=== PATIENT | female | born 1960 | race Two or more races ===

== ENCOUNTER → 2017-12-08 | Outpatient (CLI) | payer BC ==
--- NOTE | 2017-12-09 10:46 | CT ---
EXAMINATION TYPE: CT abdomen pelvis w con DATE OF EXAM: 12/08/2017 COMPARISON: NONE HISTORY: Pelvic pain with occasional hematuria and history of renal stones. Family history of cancer CT DLP: 1790 mGycm Automated exposure control for dose reduction was used. CONTRAST: CT scan of the abdomen pelvis is performed with IV Contrast, patient injected with 100 mL of Isovue 3 00. FINDINGS- LUNG BASES-subsegmental atelectasis or scar at the lung bases.. LIVER/GB-previous cholecystectomy changes noted.. PANCREAS- No gross abnormality is seen. SPLEEN- No gross abnormality is seen. ADRENALS- No gross abnormality is seen. KIDNEYS/BLADDER- no hydronephrosis. There are 2 less than 5 mm left renal calculi and a single less t loo 5 mm right renal calculus. No solid or cystic renal mass. BOWEL-bowel gas pattern nonspecific. LYMPH NODES- No greater than 1cm abdominal or pelvic lymph nodes are appreciated. OSSEOUS STRUCTURES-hypertrophic change of the spine noted. OTHER- aorta of normal caliber. No free fluid or free air. Small periumbilical fat-containing hernia noted. Correlate for previous hysterectomy. IMPRESSION- 1. Bilateral nephrolithiasis with no evidence of hydronephrosis.
== END | disposition home or self-care (01) ==
LOC: RADCTMAIN 17:40
PROVIDERS: ATTEND Family Medicine
DX: N20.0 Calculus of kidney (principal)
CPT/HCPCS: 74177; Q9967

== ENCOUNTER → 2018-05-08 | Outpatient (CLI) | payer BC ==
--- NOTE | 2018-05-08 12:52 | XR ---
Abdomen HISTORY: Left ureteral stone Frontal view of the abdomen on 2 images correlated to prior abdomen 02/24/[address] abdomen pe lvis 12/08/2017 There are calcifications within the pelvis noted compatible with phleboliths to upper pole left-sided renal calcifications each measure approximately 4 to 5 mm, upper pole calcification on the right turner sures approximately 3 mm. Surgical clips present right upper quadrant. Lung bases are clear. There is no evident bowel infection or pneumoperitoneum. Degenerative disc changes are present in the visuali zed spine. IMPRESSION: Bilateral nephrolithiasis.
== END | disposition home or self-care (01) ==
LOC: RADXRMAIN 11:19
PROVIDERS: ATTEND Urology
DX: N20.0 Calculus of kidney (principal)
CPT/HCPCS: 74018

== ENCOUNTER → 2019-06-25 | Outpatient (CLI) | payer BC ==
--- NOTE | 2019-06-26 13:27 | MM ---
Reason for exam: screening (asymptomatic). Last mammogram was performed 3 years and 1 month ago. History: Patient is postmenopausal and had first child at age 33. Family history of breast cancer in paternal aunt at age 50. Took estrogen for 6 months. Took progesterone for 6 months. Physical Findings: A clinical breast exam by your physician is recommended on an annual basis and results should be correlated with mammographic findings. MG 3D Screening Mammo W/Cad Bilateral CC and MLO view(s) were taken. Prior study comparison: May 20, 2016, bilateral MG 3d screening mammo w/cad. August 19, 2014, mammogram, performed at [facility]. There are scattered fibroglandular densities. No significant changes when compared with prior studies. ASSESSMENT: Benign, BI-RAD 2 RECOMMENDATION: Routine screening mammogram of both breasts in 1 year.
== END | disposition home or self-care (01) ==
LOC: RADMAMWWP 08:15
PROVIDERS: ATTEND Family Medicine
DX: Z12.31 Encounter for screening mammogram for malignant neoplasm of breast (principal)
CPT/HCPCS: 77063; 77067

== ENCOUNTER 2021-02-26 12:49 | Emergency (ER) | payer BC ==
[2021-02-26 12:53] VITALS: TEMP 97.8
[2021-02-26] MEDS ORDERED: KETOROLAC 15 MG/ML 1 ML VIAL IVP STA (13:20)
[2021-02-26] MEDS ORDERED: SODIUM CHLORIDE 0.9% 1,000 ML IV STA (13:20)
--- NOTE | 2021-02-26 13:31 | ED ---
General Adult HPI - General Chief complaint: Abdominal Pain Stated complaint: ABD Pain Time Seen by Provider: 02/26/21 13:02 Source: patient Mode of arrival: ambulatory Limitations: no limitations - History of Present Illness Initial comments: 61-year-old female presents to the emergency room for a chief complaint of abdominal pain. Patient reports she started to have some blood in her urine this morning. Patient went to urgent care and had a urinalysis performed as well as x-ray. Patient states she did not have pain until she got home. She then developed left-sided abdominal pain. Patient does have a history of kidney stones all of which have required lithotripsy. Patient is not sure if this feels similar to the previous stones. She denies fevers or chills. Denies nausea vomiting diarrhea.Patient has no other complaints at this time including shortness of breath, chest pain, nausea or vomiting, headache, or visual changes. - Related Data Previous Rx's Medication Instructions Recorded Cephalexin [Keflex] 500 mg PO Q6HR 7 Days #28 cap 02/26/21 Ketorolac [Toradol] 10 mg PO Q8HR 3 Days #9 tab 02/26/21 Ondansetron [Zofran ODT] 4 mg PO Q8HR PRN #15 tab 02/26/21 Tamsulosin [Flomax] 0.4 mg PO DAILY #20 cap 02/26/21 Allergies Allergy/AdvReac Type Severity Reaction Status Date / Time acetaminophen [From Vicodin] Allergy Nausea Verified 02/26/21 12:53 hydrocodone bitartrate Allergy Nausea Verified 02/26/21 12:53 [From Vicodin] Review of Systems ROS Statement: Those systems with pertinent positive or pertinent negative responses have been documented in the HPI. ROS Other: All systems not noted in ROS Statement are negative. Past Medical History Past Medical History: Asthma Additional Past Medical History / Comment(s): kidney stones and diverticulosis. recent UTI-pt states resolved antibiotics finished History of Any Multi-Drug Resistant Organisms: None Reported Past Surgical History: Section, Cholecystectomy, Hysterectomy Additional Past Surgical History / Comment(s): lithotripsy X2. COLONOSCOPY Past Anesthesia/Blood Transfusion Reactions: Postoperative Nausea & Vomiting (PONV) Past Psychological History: Anxiety Smoking Status: Never smoker Past Alcohol Use History: Occasional Past Drug Use History: None Reported - Past Family History Son(s) Family Medical History: Cancer Additional Family Medical History / Comment(s): leukemia General Exam Limitations: no limitations General appearance: alert, in no apparent distress Head exam: Present: atraumatic, normocephalic, normal inspection Eye exam: Present: normal appearance, PERRL, EOMI. Absent: scleral icterus, conjunctival injection, periorbital swelling ENT exam: Present: normal exam, mucous membranes moist Neck exam: Present: normal inspection, full ROM. Absent: tenderness, meningismus, lymphadenopathy Respiratory exam: Present: normal lung sounds bilaterally. Absent: respiratory distress, wheezes, rales, rhonchi, stridor Cardiovascular Exam: Present: regular rate, normal rhythm, normal heart sounds. Absent: systolic murmur, diastolic murmur, rubs, gallop, clicks GI/Abdominal exam: Present: soft, tenderness (Minimal left-sided mid abdominal tenderness), normal bowel sounds. Absent: distended, guarding, rebound, rigid Back exam: Absent: CVA tenderness (R), CVA tenderness (L) Neurological exam: Present: alert Course Vital Signs 02/26/21 02/26/21 12:50 15:01 Temperature 97.8 F Pulse Rate 73 80 Respiratory 20 16 Rate Blood Pressure 155/88 126/78 O2 Sat by Pulse 98 99 Oximetry Medical Decision Making - Medical Decision Making Vitals are stable. Patient is well-appearing. No CVA tenderness however patien t does have left-sided abdominal tenderness. CBC CMP unremarkable. Urinalysis however does show greater than 182 red and white blood cells. CT abdomen and pelvis shows a 6.8 mm calculus proximal left ureter resulting in mild left-sided hydronephrosis. I did discuss this case with Dr. brewer given the white blood cells. Recommends culturing the urine and starting the patient on Keflex. He will see her early next week as long as her pain is controlled. Patient reevaluated and is comfortable at this time. We'll discharge her home with strict return parameters. - Lab Data Result diagrams: 02/26/21 14:22 02/26/21 13:26 Lab Results 02/26/21 02/26/21 02/26/21 Range/Units 13:26 13:26 14:22 WBC 10.2 (3.8-10.6) k/uL RBC 4.63 (3.80-5.40) m/uL Hgb 14.2 (11.4-16.0) gm/dL Hct 42.7 (34.0-46.0) % MCV 92.2 (80.0-100.0) fL MCH 30.6 (25.0-35.0) pg MCHC 33.1 (31.0-37.0) g/dL RDW 12.4 (11.5-15.5) % Plt Count 278 (150-450) k/uL MPV 7.2 Neutrophils % 83 % Lymphocytes % 10 % Monocytes % 6 % Eosinophils % 0 % Basophils % 0 % Neutrophils # 8.4 H (1.3-7.7) k/uL Lymphocytes # 1.0 (1.0-4.8) k/uL Monocytes # 0.6 (0-1.0) k/uL Eosinophils # 0.0 (0-0.7) k/uL Basophils # 0.0 (0-0.2) k/uL Sodium 138 (137-145) mmol/L Potassium 4.4 (3.5-5.1) mmol/L Chloride 103 (98-107) mmol/L Carbon Dioxide 25 (22-30) mmol/L Anion Gap 10 mmol/L BUN 18 H (7-17) mg/dL Creatinine 0.60 (0.52-1.04) mg/dL Est GFR (CKD-EPI)AfAm >90 (>60 ml/min/1.73 sqM) Est GFR (CKD-EPI)NonAf >90 (>60 ml/min/1.73 sqM) Glucose 118 H (74-99) mg/dL Calcium 10.3 H (8.4-10.2) mg/dL Total Bilirubin 0.4 (0.2-1.3) mg/dL AST 36 (14-36) U/L ALT 49 H (4-34) U/L Alkaline Phosphatase 57 (38-126) U/L Total Protein 7.9 (6.3-8.2) g/dL Albumin 4.6 (3.5-5.0) g/dL Amylase 55 (30-110) U/L Lipase 63 (23-300) U/L Urine Color Red Urine Appearance Cloudy H (Clear) Urine pH 5.5 (5.0-8.0) Ur Specific Ozan 1.022 (1.001-1.035) Urine Protein 1+ H (Negative) Urine Glucose (UA) Negative (Negative) Urine Ketones Trace H (Negative) Urine Blood Large H (Negative) Urine Nitrite Negative (Negative) Urine Bilirubin Negative (Negative) Urine Urobilinogen <2.0 (<2.0) mg/dL Ur Leukocyte Esterase Small H (Negative) Urine RBC >182 H (0-5) /hpf Urine WBC >182 H (0-5) /hpf Urine WBC Clumps Many H (None) /hpf Ur Squamous Epith Cells 2 (0-4) /hpf Calcium Oxalate Crystal Many H (None) /hpf Urine Mucus Occasional H (None) /hpf Disposition Clinical Impression: Kidney stone on left side, UTI (urinary tract infection) Disposition: HOME SELF-CARE Instructions (If sedation given, give patient instructions): Kidney Stones (ED), Urinary Tract Infection in Women (ED) Additional Instructions: Please drink plenty of fluids. Take antibiotic as directed. Take Toradol for pain as needed. Do not take Motrin on the Suze take Toradol. Take Tylenol 3 for severe pain. Do not drive or operate machinery while taking this. Follow up with Dr. brewer early next week. Return to the emergency room for any worsening symptoms such as worsening pain or fevers. Prescriptions: Tamsulosin [Flomax] 0.4 mg PO DAILY #20 cap Cephalexin [Keflex] 500 mg PO Q6HR 7 Days #28 cap Ketorolac [Toradol] 10 mg PO Q8HR 3 Days #9 tab Ondansetron [Zofran ODT] 4 mg PO Q8HR PRN #15 tab PRN Reason: Nausea Is patient prescribed a controlled substance at d/c from ED?: No Referrals: Rogerio Baker MD [Primary Care Provider] - 1-2 days Wm Brewer MD [STAFF PHYSICIAN] - 1-2 days Time of Disposition: 15:13
[2021-02-26 14:07] LABS: ALT 49 U/L (4-34); African American GFR (CKD) >90 (>60 ml/min/1.73 sqM); Albumin 4.6 g/dL (3.5-5.0); Amylase 55 U/L (30-110); Anion Gap 10 mmol/L; Blood Urea Nitrogen 18 mg/dL (7-17); Calcium 10.3 mg/dL (8.4-10.2); Carbon Dioxide 25 mmol/L (22-30); Chloride 103 mmol/L (98-107); Glucose 118 mg/dL (74-99); Lipase 63 U/L (23-300); Non-African American GFR(CKD) >90 (>60 ml/min/1.73 sqM); Sodium 138 mmol/L (137-145); Total Bilirubin 0.4 mg/dL (0.2-1.3); Total Protein 7.9 g/dL (6.3-8.2)
[2021-02-26 14:13] LABS: AST 36 U/L (14-36); Potassium 4.4 mmol/L (3.5-5.1)
[2021-02-26 14:14] LABS: Alkaline Phosphatase 57 U/L (38-126)
[2021-02-26 14:27] LABS: Appearance,Urine Cloudy (Clear); Bilirubin,Urine Negative (Negative); Blood,Urine Large (Negative); Calcium Oxalate Crystals,Urine Many /hpf; Color,Urine Red; Glucose,Urine (UA) Negative (Negative); Ketones,Urine Trace (Negative); Leukocyte Esterase,Urine Small (Negative); Mucus,Urine Occasional /hpf; Nitrite,Urine Negative (Negative); PH, Urine 5.5 (5.0-8.0); Protein,Urine 1+ (Negative); RBC,Urine >182 /hpf (0-5); Specific Gravity,Urine 1.022 (1.001-1.035); Squamous Epithelial Cell,Urine 2 /hpf (0-4); Urobilinogen,Urine <2.0 mg/dL (<2.0); WBC,Urine >182 /hpf (0-5)
--- NOTE | 2021-02-26 14:28 | CT ---
EXAMINATION TYPE: CT abdomen pelvis w con DATE OF EXAM: 02/26/2021 COMPARISON: 12/08/2017 HISTORY: Left flank pain CT DLP: 2366.4 mGycm CONTRAST: CT scan of the abdomen and pelvis is performed without Oral Contrast and with IV Contrast, patient in jected with 100 ml mL of Isovue 300. FINDINGS: LUNG BASES-: No visible nodule. No infiltrate. LIVER/GB: The gallbladder is surgically absent. No space occupying hepatic lesion. Biliary tree is of normal caliber. PANCREAS: No inflammation. No distinct mass. SPLEEN: No splenic enlargement. No lesion seen. ADRENALS: No nodule. No thickening. KIDNEYS/BLADDER: 6.8 mm calculus proximal left ureter resulting in mild left-sided hydronephrosis. No nobstructing calculus upper pole left kidney measures 3 mm. 7.8 mm calculus mid pole right kidney is nonobstructive. No renal masses detected. BOWEL: Normal appendix. Normal bowel caliber. No inflammation. GENITAL ORGANS: Hysterectomy changes noted. LYMPH NODES: No greater than 1cm abdominal or pelvic lymph nodes are appreciated. AORTA: No significant abnormality. OSSEOUS STRUCTURES: No significant abnormality is seen. OTHER: Small fat-containing umbilical hernia. IMPRESSION: 1. 6.8 mm calculus proximal left ureter resulting in mild left-sided hydronephrosis.
[2021-02-26 14:35] LABS: Basophils % (A) 0 %; Eosinophils % (A) 0 %; HCT 42.7 % (34.0-46.0); HGB 14.2 gm/dL (11.4-16.0); Lymphocytes % (A) 10 %; MCH 30.6 pg (25.0-35.0); MCHC 33.1 g/dL (31.0-37.0); MCV 92.2 fL (80.0-100.0); Mean Platelet Volume 7.2; Monocytes # (A) 0.6 k/uL (0-1.0); Monocytes % (A) 6 %; Neutrophils # (A) 8.4 k/uL (1.3-7.7); Neutrophils % (A) 83 %; Platelet Count 278 k/uL (150-450); RBC 4.63 m/uL (3.80-5.40); RDW 12.4 % (11.5-15.5); WBC 10.2 k/uL (3.8-10.6)
[2021-02-26 15:01] VITALS: BP 126/78; PULSE 80; RESP 16
[2021-02-26] MEDS ORDERED: cefTRIAXone IN SWFI 1,000 MG/10 ML SYRINGE IVP STA (15:02)
[2021-02-26] MEDS ORDERED: ACET/COD 300 MG/30 MG STARTER PACK 6 TAB BTL PO STA (15:33)
== END 2021-02-26 15:39 | disposition home or self-care (01) ==
LOC: EC 12:49
DX: N13.2 Hydronephrosis with renal and ureteral calculous obstruction (principal); N39.0 Urinary tract infection, site not specified; J45.909 Unspecified asthma, uncomplicated; F41.9 Anxiety disorder, unspecified
CPT/HCPCS: 36415; 74177; 80053; 81001; 82150; 83690; 85025; 87086; 96361; 96374; 96375; 99284

== ENCOUNTER → 2021-03-02 | Outpatient (CLI) | payer BC ==
--- NOTE | 2021-03-02 12:11 | XR ---
EXAMINATION TYPE: XR KUB DATE OF EXAM: 03/02/2021 COMPARISON: 05/08/2018 HISTORY: Left-sided kidney stone TECHNIQUE: One view abdominal series FINDINGS: The osseous structures are intact. The bowel gas pattern is nonspecific. Surgical clips right upper quadrant. There is a punctate 2 mm calcification overlying the lower pole left kidney. There is a new 2 mm calcification left upper hemipelvis represents a ureteral calculus. Additional calcification pe lvis may be vascular. Hypertrophic change of the spine and hip joint. IMPRESSION: 1. Probable 2 mm punctate left lower pole renal calculus. 2. Possible 2 mm left hemipelvic and ureteral calcification appears new from prior exam.
== END | disposition home or self-care (01) ==
LOC: RADXRMAIN 11:37
PROVIDERS: ATTEND Urology
DX: N20.0 Calculus of kidney (principal)
CPT/HCPCS: 74018

== ENCOUNTER → 2022-09-20 | Outpatient (CLI) | payer OTHER | LOC: CPPFTMAIN 17:00 | PROVIDERS: ATTEND Allergy & Immunology | DX: J45.41 Moderate persistent asthma with (acute) exacerbation (principal); Z88.5 Allergy status to narcotic agent; Z88.8 Allergy status to other drugs, medicaments and biological substances | CPT/HCPCS: 94060; 94726; 94729 ==

== ENCOUNTER → 2023-04-06 | Outpatient (CLI) | payer OTHER ==
[2023-04-06 16:20] LABS: Basophils # (A) 0.06 X 10*3/uL (0.00-0.10); Basophils % (A) 1.4 %; Eosinophils # (A) 0.05 X 10*3/uL (0.04-0.35); Eosinophils % (A) 1.1 %; HCT 44.3 % (37.2-46.3); HGB 14.2 d/dL (12.0-15.0); Lymphocytes # (A) 1.44 X 10*3/uL (0.90-5.00); Lymphocytes % (A) 33.1 %; MCH 29.6 pg (27.0-32.0); MCHC 32.1 d/dL (32.0-37.0); MCV 92.5 FL (80.0-97.0); Mean Platelet Volume 9.8 FL (9.5-12.2); Monocytes # (A) 0.41 X 10*3/uL (0.20-1.00); Monocytes % (A) 9.4 %; NRBC Per 100 WBC 0 X 10*3/uL (0.00-0.01); Neutrophils # (A) 2.38 X 10*3/uL (1.80-7.70); Neutrophils % (A) 54.8 %; Platelet Count 269 X 10*3/uL (140-440); RBC 4.79 X 10*6/uL (4.10-5.20); WBC 4.35 X 10*3/uL (4.50-10.00)
[2023-04-06 22:45] LABS: Aspergillus fumagatus IgE <0.10 kU/L; Codfish IgE <0.10 kU/L; Dog Dander IgE 1.78 kU/L; Egg White IgE <0.10 kU/L; Maple (Box Elder) IgE <0.10 kU/L; Oak IgE <0.10 kU/L; Peanut IgE <0.10 kU/L; Ragweed,Common IgE 0.32 kU/L; Shrimp IgE <0.10 kU/L; Soybean IgE <0.10 kU/L
[2023-04-07 09:56] LABS: Alt. alternata IgE Class CLASS 0; Alternaria alternata IgE <0.10 kU/L (<0.10); Chicken IgE Class CLASS 0; Crab IgE <0.10 kU/L (<0.10); Crab IgE Class CLASS 0; Salmon IgE <0.10 kU/L (<0.10); Salmon IgE Class CLASS 0
[2023-04-07 10:35] LABS: HLA B27 NEGATIVE
== END | disposition home or self-care (01) ==
LOC: LABWHC1 07:30
PROVIDERS: ATTEND Internal Medicine Geriatric Medicine
DX: M19.90 Unspecified osteoarthritis, unspecified site (principal); E78.2 Mixed hyperlipidemia; E07.9 Disorder of thyroid, unspecified; J45.40 Moderate persistent asthma, uncomplicated; R73.9 Hyperglycemia, unspecified
CPT/HCPCS: 36415; 80053; 80061; 82306; 83036; 84439; 84443; 84550; 85025; 86003; 86038; 86431; 86812

== ENCOUNTER → 2023-05-05 | Outpatient (CLI) | payer OTHER ==
--- NOTE | 2023-05-05 10:47 | BD ---
EXAMINATION TYPE: Axial Bone Density DATE OF EXAM: 05/05/2023 CLINICAL HISTORY: 63 years old Female. ICD-10 CODE: Z13.820 screening Height: 65.5in Weight: 262lb FRAX RISK QUESTIONS: Secondary Osteoporosis: 3. Menopause before 45: at 47 RISK FACTORS HISTORY OF: Family History of Osteoporosis: yes Active: yes Diet low in dairy products/other sources of calcium: yes Postmenopausal woman: yes MEDICATIONS: Additional Medications: cholesterol med, vitamin d, inhaler (occasional) Additional History: EXAM MEASUREMENTS: Bone mineral densitometry was performed using the [employer] System. Bone mineral density as measured about the Lumbar spine is: ----- L1-L4(G/cm2): 1.052 T Score Values are as follows: ----- L1: -1.0 ----- L2: -1.3 ----- L3: -0.7 ----- L4: -1.4 ----- L1-L4: -1.1 Z Score Values are as follows: ----- L1: -0.9 ----- L2: -1.2 ----- L3: -0.6 ----- L4: -1.2 ----- L1-L4: -0.9 First dexa at [facility] Bone mineral density about the R hip (g/cm2): 1.038 Bone mineral density about the L hip (g/cm2): 1.089 T Score values are as follows: -----R Neck: -1.0 -----L Neck: -0.8 -----R Total: 0.2 -----L Total: 0.6 Z Score values are as follows: -----R Neck: -0.5 -----L Neck: -0.2 -----R Total: 0.4 -----L Total: 0.8 FRAX%s: The graph provided illustrates a 6.4% chance for a major osteoporotic fx and a 0.4% chance fo r the hips probability for fx in 10 years time. IMPRESSION: Normal (Values between +1 and -1 indicate normal bone mass). Consider repeating this study in 5 year s or sooner if there is some new clinical indication. NOTE: T-SCORE=SD OF THE YOUNG ADULT MEAN.
--- NOTE | 2023-05-08 08:31 | MM ---
Reason for Exam: Screening (asymptomatic). Last mammogram was performed 1 year(s) and 2 month(s) ago. Patient History: Menarche at age 14. First Full-Term at age 33. Late child-bearing (after 32). Left ovary removed at age 49. Right ovary removed at age 49. Hysterectomy at age 49. Postmenopausal. Patient has history of breast feeding. Estrogen for 6 months. Progesterone for 6 months. Paternal aunt had breast cancer, age 50. Sister had breast cancer under age 50. Risk Values: Jaen 5 year model risk: 3.0%. NCI Lifetime model risk: 13.9%. Prior Study Comparison: 08/19/2014 Screening Mammogram, [facility]. 05/20/2016 Bilateral Screening Mammogram, [facility]. 06/25/2019 Bilateral Screening Mammogram, [facility]. 03/14/2022 Bilateral Screening Mammogram, [facility]. Tissue Density: The breast tissue is almost entirely fat. Findings: Analyzed By CAD. There is no suspicious group of microcalcifications or new suspicious mass. Benign-appearing calcifications bilaterally. Overall Assessment: Benign, BI-RAD 2 Management: Screening Mammogram of both breasts in [address] [facility] will attempt to contact patient to return for supplemental views and ultrasound if indicated. Patient should continue monthly self-breast exams. A clinical breast exam by your physician is recommended on an annual basis. This exam should not preclude additional follow-up of suspicious palpable abnormalities. Note on Jane scores and lifetime risk: 1. A Jane score greater than 3% is considered moderate risk. If this is the case, consider specialist referral to assess eligibility for a risk reducing agent. 2. If overall lifetime risk for the development of breast cancer is 20% or higher, the patient may qualify for future screening with alternating mammogram and breast MRI. Electronically signed and approved by: Sagar Leach DO
== END | disposition home or self-care (01) ==
LOC: RADMAMWWP 06:58
PROVIDERS: ATTEND Internal Medicine Geriatric Medicine
DX: Z12.31 Encounter for screening mammogram for malignant neoplasm of breast (principal); Z13.820 Encounter for screening for osteoporosis; M85.88 Other specified disorders of bone density and structure, other site; Z78.0 Asymptomatic menopausal state; Z80.3 Family history of malignant neoplasm of breast
CPT/HCPCS: 77063; 77067; 77080

== ENCOUNTER → 2023-10-06 | Outpatient (CLI) | payer OTHER ==
--- NOTE | 2023-10-06 15:30 | CT ---
EXAMINATION: CT ABDOMEN AND PELVIS WITH IV CONTRAST DATE OF EXAMINATION: 10/06/2023. COMPARISON: None available. INDICATION: Diverticulitis. PROCEDURE: Axial CT of the abdomen and pelvis was performed with contrast and sagittal and coronal reformatted images were performed. CT dose lowering techniques were used, to include: automated expos ure control, adjustment for patient size, and/or use of iterative reconstruction. 100 mL of Isovue-30 0 was given intravenously. FINDINGS: LOWER CHEST : The visualized lung bases are clear. There are no pleural or pericardial effusions. ABDOMEN: Liver and Biliary system: Normal. Adrenal glands: Normal. Kidneys and ureters: There is a 1 cm nonobstructing stone in the upper pole of the right kidney. The kidneys and ureters otherwise appear unremarkable. Spleen: Normal. Pancreas: Normal. Gallbladder: Absent. Lymph nodes, Peritoneum and mesentery: There is no mesenteric or retroperitoneal lymphadenopathy. Gastrointestinal tract: There are no dilated loops of bowel or free intraperitoneal air. The appe ndix is normal. Aorta/IVC: No aortic aneurysm. IVC normal. Abdominal wall: Normal. PELVIS: Fluid: There is no free fluid in the pelvis. Lymph Nodes: There is no pelvic or inguinal lymphadenopathy.. Urinary bladder: Normal. BONES: There are no osseous destructive lesions.. ADDITIONAL SIGNIFICANT FINDINGS: None. IMPRESSION: 1. No acute process within the abdomen or pelvis. 2. Nonobstructing right renal stone.
== END | disposition home or self-care (01) ==
LOC: RADCTMAIN 13:32
PROVIDERS: ATTEND Internal Medicine Geriatric Medicine
DX: N20.0 Calculus of kidney (principal); K57.32 Diverticulitis of large intestine without perforation or abscess without bleeding
CPT/HCPCS: 74177; Q9967

== ENCOUNTER → 2024-04-08 | Outpatient (CLI) | payer OTHER ==
--- NOTE | 2024-04-08 08:20 | CT ---
EXAMINATION TYPE: CT brain wo con DATE OF EXAM: 04/08/2024 COMPARISON: 08/23/2014 HISTORY: headache after fall CT DLP: 1047.[address] of the brain was performed. The ventricles, basal cisterns and sulci overlying the cerebral convexities demonstrate mild enlargem ent. There is no evidence for intracranial hemorrhage or sulcal effacement. There is decreased attenuation about the periventricular white matter and deep white matter of both c erebral hemispheres, compatible with chronic small vessel ischemia. Differential diagnosis does inclu de demyelination. No mass effects are seen.No midline shift. Osseous calvarium is intact. If symptoms persist consider MRI. IMPRESSION: 1. Age related atrophic and chronic small vessel ischemic change without acute intracranial process s een at this time.
--- NOTE | 2024-04-08 11:11 | XR ---
EXAMINATION TYPE: XR cervical spine comp DATE OF EXAM: 04/08/2024 7:01 AM CLINICAL INDICATION: Female, 64 years old with history of R51.9 HEADACHE M54.2 CERVICALGIA; [facility] COMPARISON: None TECHNIQUE: The cervical spine was imaged in frontal, lateral, odontoid and bilateral oblique. FINDINGS: The osseous structures show normal alignment without evidence of an acute fracture. There are osteoph ytes noted throughout the cervical spine on the anterior and lateral aspects of the vertebral bodies. The intervertebral disk spaces are narrowed at multiple levels. Pedicles are intact. Soft tissues a re within normal limits. The odontoid appears intact. IMPRESSION: 1. No fracture or dislocation. 2. Mild degenerative disc disease changes of the cervical spine.
== END | disposition home or self-care (01) ==
LOC: RADCTMAIN 06:32
PROVIDERS: ATTEND Internal Medicine Geriatric Medicine
DX: I67.82 Cerebral ischemia (principal); M50.30 Other cervical disc degeneration, unspecified cervical region
CPT/HCPCS: 70450; 72050

== ENCOUNTER 2025-01-08 05:43 | Day surgery (SDC) | payer OTHER ==
--- NOTE | 2025-01-07 19:39 | P.GSHP ---
History of Present Illness H&P Date: 01/07/25 65 yo female with recurrent utis. She has a 1 cm right renal stone. the patient comes for removal of this stone and hopeful cessation of the recurrent utis. She is on ab. - Constitutional Constitutional: Denies chills, Denies fever - EENT Eyes: denies blurred vision, denies pain Ears, nose, mouth and throat: Denies headache, Denies sore throat - Cardiovascular Cardiovascular: Denies chest pain, Denies shortness of breath - Respiratory Respiratory: Denies cough, Denies 7 - Gastrointestinal Gastrointestinal: Denies abdominal pain, Denies diarrhea, Denies nausea, Denies vomiting - Genitourinary (Female) Genitourinary: Denies dysuria, Denies hematuria - Genitourinary (Male) Genitourinary: Denies dysuria, Denies hematuria - Musculoskeletal Musculoskeletal: Denies myalgias - Integumentary Integumentary: Denies pruritus, Denies rash - Neurological Neurological: Denies numbness, Denies weakness - Psychiatric Psychiatric: Denies anxiety, Denies depression - Endocrine Endocrine: Denies fatigue, Denies weight change Past Medical History Past Medical History: Asthma, Osteoarthritis (OA), Sleep Apnea/CPAP/BIPAP Additional Past Medical History / Comment(s): kidney stones and diverticulosis, current A/B for UTI, doesn't use anything for sleep apnea History of Any Multi-Drug Resistant Organisms: None Reported Past Surgical History: Section, Cholecystectomy, Hysterectomy Additional Past Surgical History / Comment(s): lithotripsy X2, cysts removed fr om scalp,. COLONOSCOPY Past Anesthesia/Blood Transfusion Reactions: Postoperative Nausea & Vomiting (PONV) Smoking Status: Never smoker - Past Family History Son(s) Family Medical History: Cancer Additional Family Medical History / Comment(s): leukemia Medications and Allergies Home Medications Medication Instructions Recorded Confirmed Type Albuterol Inhaler [Ventolin Hfa 1 - 2 puff INHALATION Q6H PRN 01/07/25 01/07/25 History Inhaler] Sulfamethox-Tmp 800-160Mg [Bactrim 1 tab PO Q12HR 01/07/25 01/07/25 History DS 800-160 mg] hydroCHLOROthiazide [Hydrodiuril] 12.5 mg PO DAILY PRN 01/07/25 01/07/25 History Allergies Allergy/AdvReac Type Severity Reaction Status Date / Time acetaminophen [From Vicodin] Allergy Nausea Verified 01/07/25 08:41 hydrocodone bitartrate AdvReac Nausea Verified 01/07/25 08:41 [From Vicodin] Surgical - Exam - General well developed, well nourished, no distress - Eyes normal ocular movement, no icteric - ENT no hearing loss, no congestion - Neck no masses, trachea midline - Respiratory normal respiratory effort, clear to auscultation - Abdomen Abdomen: soft, non tender, no guarding, no rigid, no rebound - Integumentary no rash, no abnormal pigmentation - Neurologic no disoriented, no combative - Psychiatric oriented to time, oriented to person, oriented to place, speech is normal, memory intact Results - Imaging Abdominal x-ray: report reviewed, image reviewed CT scan - abdomen: report reviewed, image reviewed CT scan - pelvis: report reviewed, image reviewed Assessment and Plan Assessment: Impression: recurrent uti witha right renal stone Plan: cysto with right ureteroscopy with laser lithotripsy and possible stent
[2025-01-08] MEDS ORDERED: LIDOCAINE 1% (10MG/ML) FOR IV START INTRADERMA PRN (06:20)
[2025-01-08] MEDS ORDERED: fentaNYL (PF) 50 MCG/ML 2 ML AMP IVP PRN (06:20)
[2025-01-08] MEDS ORDERED: MIDAZOLAM 2 MG/2 ML VIAL IV PRN (06:20)
[2025-01-08] MEDS ORDERED: HYDROmorphone 0.5 MG/0.5 ML SYRINGE IVP PRN (06:20)
[2025-01-08] MEDS: IV FLUID CONTINUATION 1,000 ML IV ONE (06:27)
--- NOTE | 2025-01-08 06:33 | XR ---
EXAMINATION TYPE: XR KUB DATE OF EXAM: 01/08/2025 6:18 AM CLINICAL INDICATION: Female, 65 years old with history of N20.0 Right Renal Stone, pain TECHNIQUE: 2 supine views of the abdomen. COMPARISON: CT abdomen and pelvis October 06, 2023. FINDINGS: Likely stable roughly 9 mm right renal calculus. No definite left-sided nephrolithiasis. Sc attered tiny pelvic phleboliths. Overall nonobstructive bowel gas pattern. Osseous structures are intact. Cholecystectomy clips are re demonstrated. IMPRESSION: As above. [facility], , 01/08/2025 6:31 AM
[2025-01-08] MEDS: ONDANSETRON 4 MG/2 ML VIAL IVP ONE (06:58)
[2025-01-08] MEDS: DEXAMETHASONE SOD PHOSPHATE 4 MG/ML 1 ML VIAL IV ONE (06:59)
[2025-01-08] MEDS: LACTATED RINGERS 1,000 ML IV SCH (07:03)
[2025-01-08] MEDS ORDERED: fentaNYL (PF) 50 MCG/ML 2 ML AMP ONE (07:27)
[2025-01-08] MEDS ORDERED: PHENYLEPHRINE 10 MG/ML VIAL ONE (07:27)
[2025-01-08] MEDS ORDERED: PROPOFOL 10 MG/ML 20 ML VIAL IV ONE (07:27)
[2025-01-08] MEDS ORDERED: MIDAZOLAM 2 MG/2 ML VIAL ONE (07:27)
[2025-01-08] MEDS ORDERED: LIDOCAINE 1% INJ 10MG/ML (20 ML MDV) ONE (07:27)
[2025-01-08] MEDS ORDERED: SUCCINYLCHOLINE CHLORIDE 200 MG/10 ML VIAL IV ONE (07:27)
[2025-01-08] MEDS ORDERED: ALBUTEROL HFA INHALER INHALATION ONE (07:27)
[2025-01-08] MEDS: GENTAMICIN 130 MG in SODIUM CHLORIDE 0.9% 100 ML IVPB PRN (07:30)
--- NOTE | 2025-01-08 08:25 | P.OP ---
Date of Procedure: 01/08/25 Preoperative Diagnosis: Right renal stone Postoperative Diagnosis: Same Procedure(s) Performed: Cystoscopy, right ureteroscopy with laser lithotripsy Anesthesia: PALLAVI Surgeon: Michael Jean Estimated Blood Loss (ml): 0 Pathology: none sent Condition: stable Disposition: PACU Indications for Procedure: Patient is 65. She has painful right renal stone she comes for cystoscopy right ureteroscopy and laser lithotripsy Description of Procedure: Patient brought to the operating suite. Given a general anesthetic. Placed in lithotomy position with a sterile prep and drape. Cystoscopy identifies a normal urethra normal ureters normal bladder mucosa. The right ureteral orifice is intubated an 035 wire was passed up into the kidney. Over the wire is passed an 11-13 [place] reentry sheath. The inner sheath is removed. Passed the flexible ureteroscope up into the mid upper pole calyx with the stones. With a 275 m laser probe the stones are broken into very tiny fragments. None of the fragments are big enough to be basketed. I look throughout the collecting system there are no remaining stones. Pullout ureteroscopy is unremarkable Impression successful ureteroscopy and laser lithotripsy to right renal stones. There are calcium oxalate based on appearance. Patient be discharged home upon recovery and follow-up in the office in 1 week.
--- NOTE | 2025-01-08 08:28 | FL ---
Fluoroscopy INDICATION: Pain FINDINGS: Fluoroscopy time: 8 point seconds. Total dose area product (DAP) in uGy*m?, mGy*cm? (or similar): [id number] Images obtained: 3. Images document the procedure. IMPRESSION: 1. Documentation of fluoroscopy. [facility], , 01/08/2025 8:26 AM
[2025-01-08 08:35] VITALS: TEMP 96.8
[2025-01-08 09:16] VITALS: BP 129/77; PULSE 69; RESP 16
[2025-01-08] MEDS: ONDANSETRON ODT 4 MG TAB PO STA (09:57)
== END 2025-01-08 10:00 | disposition home or self-care (01) ==
LOC: OR 05:43
PROVIDERS: ATTEND Urology
DX: N20.0 Calculus of kidney (principal); J45.909 Unspecified asthma, uncomplicated; M19.90 Unspecified osteoarthritis, unspecified site; G47.33 Obstructive sleep apnea (adult) (pediatric); F41.9 Anxiety disorder, unspecified; Z88.5 Allergy status to narcotic agent; Z90.49 Acquired absence of other specified parts of digestive tract; Z90.710 Acquired absence of both cervix and uterus; Z88.1 Allergy status to other antibiotic agents; Z79.51 Long term (current) use of inhaled steroids; Z79.899 Other long term (current) drug therapy
CPT/HCPCS: 74018; 52353; C1769; J2250; J0330; J1100; J2405; J2003; J3010; J1580; J2704; J2371

== ENCOUNTER → 2025-01-27 | Outpatient (CLI) | payer OTHER ==
--- NOTE | 2025-01-27 10:26 | XR ---
EXAMINATION TYPE: XR KUB DATE OF EXAM: 01/27/2025 9:17 AM COMPARISON: 01/08/2025 CLINICAL INDICATION: Female, 65 years old with history of N20.0 CALCULUS OF KIDNEY, TECHNIQUE: Single view of the abdomen. FINDINGS: Right renal calculi: 6 mm right renal calculus midpole. Right ureteral calculi: None Visualized. Left renal calculi: None Visualized. Left ureteral calculi: None Visualized. Pelvic calcifications: Yes Bowel gas pattern is unremarkable. No free air. No mass effects. IMPRESSION: 1. Right renal calculus. [facility], , 01/27/2025 10:24 AM
== END | disposition home or self-care (01) ==
LOC: LABWHC1 09:01
PROVIDERS: ATTEND Urology
DX: N20.0 Calculus of kidney (principal)
CPT/HCPCS: 74018